=== PATIENT | male | born 1990 | race Hispanic/Latino ===

== ENCOUNTER 2017-03-21 22:09 | Emergency (ER) | payer OTHER ==
[~2017-03-21] VITALS: Ht 177.8 cm; Wt 123.4 kg
[~2017-03-21 22:09] MED LIST: FLEXERIL10 MG PO; MEDROL DOSEPAK4 MG PO; MOTRIN800 MG PO; NAPROSYN500 MG PO; ULTRAM50 MG PO
[2017-03-21 23:38] VITALS: BP 150/76
== END 2017-03-21 23:41 | disposition home or self-care (01) ==
LOC: EME 22:09
DX: R20.2 Paresthesia of skin (principal); F17.200 Nicotine dependence, unspecified, uncomplicated
CPT/HCPCS: 99281; 99283